=== PATIENT | male | born 1965 | race Asian ===

== ENCOUNTER 2021-10-25 16:51 | Outpatient (REF) | payer MEDICAID, SELFPAY ==
--- NOTE | ~2021-10-25 | XR_ITS ---
EXAMINATION: XR KNEE, RIGHT CLINICAL INFORMATION: Pain. COMPARISON: Radiographs dated 02/19/2019. TECHNIQUE: AP, lateral, tunnel, and sunrise views of the right knee. FINDINGS: Bony alignment and mineralization are normal. The lateral, medial and patellofemoral joint space compartments are well-maintained. No unusual degenerative change is presently seen. No fracture or dislocation is seen. There is no significant joint effusion. No foreign body is seen. XR/XR knee RT 4V IMPRESSION: Unremarkable right knee. EXAMINATION: XR KNEE, LEFT CLINICAL INFORMATION: Pain. COMPARISON: None TECHNIQUE: AP, lateral, tunnel, and sunrise views of the left knee. FINDINGS: Bones and soft tissues are normal. No fracture or joint effusion. Alignment is anatomic. Joint spaces are well maintained. No abnormal soft tissue calcification. IMPRESSION: Normal left knee.
--- NOTE | ~2021-10-25 | XR_ITS ---
EXAMINATION: XR KNEE, RIGHT CLINICAL INFORMATION: Pain. COMPARISON: Radiographs dated 02/19/2019. TECHNIQUE: AP, lateral, tunnel, and sunrise views of the right knee. FINDINGS: Bony alignment and mineralization are normal. The lateral, medial and patellofemoral joint space compartments are well-maintained. No unusual degenerative change is presently seen. No fracture or dislocation is seen. There is no significant joint effusion. No foreign body is seen. XR/XR knee LT 4V IMPRESSION: Unremarkable right knee. EXAMINATION: XR KNEE, LEFT CLINICAL INFORMATION: Pain. COMPARISON: None TECHNIQUE: AP, lateral, tunnel, and sunrise views of the left knee. FINDINGS: Bones and soft tissues are normal. No fracture or joint effusion. Alignment is anatomic. Joint spaces are well maintained. No abnormal soft tissue calcification. IMPRESSION: Normal left knee.
== END 2021-10-25 16:52 | disposition home or self-care (01) ==
LOC: HO.XRAY 16:51
PROVIDERS: PCP Internal Medicine; Visit Provider Internal Medicine
DX: M25.561 Pain in right knee (principal); M25.562 Pain in left knee
CPT/HCPCS: 73564

== ENCOUNTER → 2022-01-06 14:56 | Outpatient (REF) | payer MEDICAID, SELFPAY ==
--- NOTE | 2022-01-06 15:01 | CA_ITS ---
Transthoracic Echocardiogram Patient (Last, First, Middle): Al Burns, Gender: Male Date of : 1965 Age: 56 Procedure Date: 01/06/2022 Procedure Type: Transthoracic Echocardiogram Location: OP Height: 167.64 cm Weight: 86.18 kg BSA: 1.96 m2 Heart Rate: bpm BP: 110 / 78 mmHg Spot Man: TO Referring MD: Basil Teresa MD Transmission Systems Operator: Waldo Nugent MD Symptoms: I10 HTN I51.9 HEART DISEASE Study Quality: Fair ECG Rhythm: Sinus Conclusions: - 1. Normal LV systolic function with grade 1 diastolic dysfunction 2. Normal cardiac valvular Doppler 3. Normal RV systolic pressure 4. Upper limits of normal ascending aortic size at 3.7 cm 5. No pericardial effusion Findings Left Ventricle Normal left ventricular size, thickness, and systolic function. The visually estimated ejection fraction is between 55-60%. Regional wall motion abnormalities can not be excluded due to suboptimal endocardial definition. Spectral Doppler is indicative of an impaired relaxation filling pattern. E/E prime ratio is <8, consistent with normal filling pressures. Evidence suggests grade I (mild) diastolic dysfunction. Right Ventricle Normal right ventricular cavity size and systolic function. Atria Both atria are normal in size. There is lipomatous hypertrophy of the interatrial septum. There is no evidence of interatrial shunt. Aortic Valve Normal aortic valve structure and function. There is no aortic valve stenosis. There is no aortic valve regurgitation. Mitral Valve Normal mitral valve structure and function. There is trace mitral valve regurgitation. There is no mitral valve stenosis. Pulmonic Valve The pulmonic valve was not well visualized. Tricuspid Valve Normal tricuspid valve structure. There is mild tricuspid valve regurgitation. The right ventricular systolic pressure is normal. Normal right atrial pressure. There is no evidence of pulmonary hypertension. Great Vessels There is mild dilatation of the ascending aorta measuring 3.70 cm. Venous The inferior vena cava is normal in size and collapses greater than 50% with inspiration. Pericardium/Pleural There is no evidence of pericardial effusion. Prior Study Comparison No significant change compared to prior study dated: 03/24/2017. Measurements 2D Linear Measurements IVSd: 1.13 0.6-0.9/0.6-1.0 cm LVIDd: 3.74 3.9-5.3/4.2-5.9 cm LVIDd Index: 1.91 2.4-3.2/2.2-3.1 cm/m2 LVIDs: 2.99 2.0-3.6 cm LVPWd: 0.88 0.7-1.1 cm LA Diam: 2.80 2.7-3.8/3.0-4.0 cm LAIDs Index: 1.43 1.5-2.3 cm/m2 LV Mass: 143.31 67-162/88-224 g LV Mass Index: 73.12 43-95/49-115 g/m2 LVOT Diam: 2.20 3.0+(-)1.3 cm 2D Systolic Function EF 4C: 47.40 >55% EF 2C: 53.00 >55% Mitral Valve MV Pk E: 0.61 MV PK A: 0.73 MV Decel Time: 212.00 E/A: 0.80 E'Lateral: 9.03 E'Medial: 6.31 E/E' Med: 9.70 E/E' Lat: 6.80 PHT: 62.00 MVA PHT: 3.55 Decel Price: 2.89 Aortic Valve AoV Pk Harry: 0.93 AoV Mn Harry: 0.67 AoV VTI: 0.18 AoV Pk Grad: 3.00 Aov Mn Grad: 2.00 GEORGETTE Cont.VTI: 3.54 LVOT LVOT Pk Harry: 0.92 LVOT Mn Harry: 0.55 LVOT VTI: 0.17 LVOT Pk Grad: 3.00 LVOT Mn Grad: 1.00 LVOT Diam: 2.20 LVOT Area: 3.80 Diastolic Function MV Pk E: 0.61 MV Pk A: 0.73 E/A: 0.80 E'Medial: 6.31 E/E' Med: 9.70 E' Laterial: 9.03 E/E' Lat: 6.80 Right Ventricle TAPSE (mm): 19.20 TVS' Harry: 8.92 Tricuspid Valve TR Pk Harry: 2.26 TR Pk Grad: 20.00 RA Press: 3.00 RVSP: 23.00 Great Vessels Aorta Sinus of Valsalva: 4.13 2.0-3.[address] Ridge: 2.84 1.7-3.4 cm Ao Asc: 3.70 2.1-3.4 cm Updated in Other Vendor System with Status of Final Waldo Nugent MD electronically signed on 01/06/2022 5:01:34 PM with status of Final
== END ==
LOC: HO.CARD 14:56
PROVIDERS: Visit Provider Internal Medicine
DX: I51.9 Heart disease, unspecified (principal)
CPT/HCPCS: 93306